=== PATIENT | female | born 1955 | race Caucasian/White ===

== ENCOUNTER 2023-12-12 05:53 | Day surgery (SDC) | payer MEDICARE, OTHER, SELFPAY ==
--- NOTE | 2023-11-07 12:12 | CM ---
Patient is scheduled for an elective L TKR on 12/12/23- she is a same day patient. Spoke with patient prior to surgery. Introduced role of Orthopedic Navigator. Patient reports that she lives with her in a two story home. There are two steps
to enter and a flight of steps to the second floor. She currently functions independently. She has a cane and rolling walker. She has never had VN services. PCP is Ale Turk.
Discussed orthopedic program and post surgical plans. Reviewed that she will have VN services initially (medicare.gov website and ratings reviewed) and will then start outpatient PT. Patient selects [facility] (face sheet faxed to [facility] to facilitate
confirmation of benefits) for her home care needs and will go to [facility] for outpatient PT.
Patient is in agreement with plan and states that her will be home with her.
Patient has completed online education.
Plan: Orthopedic Navigator will remain available to assist with the care of patient and will reassess discharge needs after surgery.
[2023-11-23 12:39] VITALS: BMI 37.3
[2023-11-23 14:12] LABS: Hematocrit 42.4 % (37.0-47.0); Hemoglobin 14.7 g/dL (12.0-16.0); Mean Corp Hgb Conc. 34.7 g/dL (33.0-37.0); Mean Corpuscular Hgb 31.4 pg (27.0-31.0); Mean Corpuscular Volume 90.6 fL (81.0-99.0); Mean Platelet Volume 9.1 fL (7.4-10.4); Platelet Count 260 10^3/uL (130-400); Red Blood Cell Count 4.68 10^6/uL (4.20-5.40); Red Cell Dist. Width 12.7 % (11.5-14.5); White Blood Cell Count 4.9 10^3/uL (4.8-10.8)
[2023-11-23 14:23] LABS: ALT (SGPT) 31 U/L (0-35); AST (SGOT) 31 U/L (14-36); Albumin 4.7 g/dl (3.5-5.0); Alkaline Phosphatase 91 U/L (38-126); Blood Urea Nitrogen 14 mg/dl (7-17); Calcium 10.6 mg/dl (8.4-10.2); Carbon Dioxide 30 mmol/L (22-30); Chloride 100 mmol/L (98-107); Estimated Creatinine Clearance 58 ml/min; Glucose 100 mg/dl (70-99); Potassium 4.2 mmol/L (3.5-5.1); Sodium 136 mmol/L (135-145); Total Bilirubin 0.9 mg/dl (0.2-1.3); Total Protein 7.5 g/dl (6.3-8.2); eGFR > 60.00
[2023-11-23 14:26] LABS: Glycohemoglobin (HgbA1c) 6.3 % (4.0-5.6)
--- NOTE | 2023-11-23 15:08 | HPS.HSE ---
Family Physician
-
Family Physician: Ale Turk
Chief Complaint
-
Advanced primary osteoarthritis of the left knee. Same-day surgery.
History of Present Illness
The patient is a 68-year-old female presenting today for advanced primary osteoarthritis of the left knee. The patient reports significant left knee pain secondary to this diagnosis. She notes that her current left knee pain is greatly
interfering with her activities of daily living and is overall impacting her quality of life. She has tried and failed multiple conservative treatment measures in the past for her knee pain. These conservative treatment measures include
intra-articular injections, self-directed therapeutic exercises, activity modification, attempted weight loss, medical management with Tylenol and NSAIDs, and the application of ice and/or heat. Recent x-rays of the left knee revealed significant
osteoarthritis with medial joint space narrowing and periarticular spurs about the medial and lateral compartments. She was determined to be in need of a left total knee arthroplasty. She denies any current complaints today, such as chest pain,
shortness of breath, palpitations, nausea, vomiting, diarrhea, lightheadedness, dizziness, cough, sore throat, or fever.
Medical History
Past Medical History
Past Medical History: Reports Other
Additional Past Medical History:
1. Osteoarthritis.
2. Hypertension.
3. Hyperlipidemia.
4. Ambulatory dysfunction.
5. Vulvar lichen sclerosus.
6. Right retinal detachment, status post repair.
7. Mild hypercalcemia.
8. Prediabetes, A1c 6.3.
9. Obesity, BMI 37.3.
Past Surgical History: Reports Other
Additional Past Surgical History:
1. Right knee arthroscopy.
2. Right hand cyst excision.
3. Bilateral tubal ligation.
4. x2.
5. Right retinal detachment repair.
6. Bilateral cataract extraction.
7. Colonoscopy x2.
Social History
Tobacco: Non-smoker
Alcohol: None
Personal:
Living: Other (She lives with her in a 2 story home. )
Family History
Family History: Not pertinent
Allergies / Home Medications
Allergy/Medication List:
Home medications:
1. Acetaminophen 500 mg p.o. daily as needed.
2. Clobetasol 1 application topical twice a week.
3. Hydrochlorothiazide 25 mg p.o. daily.
4. Ibuprofen 400 mg p.o. every 8 hours as needed.
5. Lisinopril 10 mg p.o. daily as needed.
6. Loratadine 10 mg p.o. daily as needed.
7. Multivitamin 2 gummies p.o. daily.
8. Rosuvastatin 5 mg p.o. daily.
Allergies: Seasonal. No known drug allergies.
Review of Systems
-
A 12 point ROS was completed and negative except as noted: Yes
Physical Exam
Vital Signs
Blood pressure 153/87. Heart rate 86. Respirations 18. Pulse ox 97% on room air.
Height 5 feet. Weight 86.7 kg. BMI 37.3.
Physical Exam
General: Well Developed, Well Nourished and No Apparent Distress
HEENT: NormoCephalic, Moist mucous membranes, Atraumatic and PERRLA
Respiratory: Clear
Cardiac: Regular Rhythm
GI: Soft, Non Tender, Non Distended and Other (Obese. )
Musculoskeletal: Other (Left knee: range of motion 10-120. Positive medial and lateral joint line tenderness. Positive patellar grind. Small effusion. Mild instability to valgus stress. Palpable Rodriguez's cyst. )
Skin: Warm and Dry
Neuro: AO x 3 and Nonfocal/grossly intact
Laboratory Results
-
11/23/23 12:20
11/23/23 12:20
Laboratory Results
Total Bilirubin 0.9 mg/dl (0.2-1.3) 11/23/23 12:20
AST 31 U/L (14-36) 11/23/23 12:20
ALT 31 U/L (0-35) 11/23/23 12:20
Alkaline Phosphatase 91 U/L (38-126) 11/23/23 12:20
Hemoglobin A1c 6.3.
MRSA nasal screen negative.
EKG 11/23/2023: Normal sinus rhythm. Nonspecific ST and T wave abnormality. Compared to the prior EKG of 12/06/2011, no significant change was found.
Impression/Plan
-
CLEARANCES:
1. Primary medical, Dr. Ale Turk, cleared.
Primary medical phone number: [phone].
2. Dental waived.
IMPRESSION/PLAN:
1. Advanced primary osteoarthritis of the left knee in need of a left total knee arthroplasty with Dr. Ricardo Remy on 12/12/2023. The benefits and risks of the procedure have been explained to the patient. The patient understands these risks and
wishes to proceed.
2. DVT prophylaxis - Aspirin with bilateral venous compression devices.
3. Pain management: The patient has stable comorbidities as referenced by her primary care physician and is medically optimized to proceed as a Same-Day Surgery candidate on 12/12/2023. In preparation for her procedure, she has already been
prescribed Oxycodone 5 mg, 1-2 tablets p.o. every 6 hours as needed for moderate-severe post-operative pain. She will also utilize Acetaminophen 1000 mg p.o. every 6 hours, Meloxicam 15 mg p.o. daily, and Decadron 4 mg p.o. twice a day for 3 days
post-surgery.
Patient's phone number: [phone].
Patient's contact (Marco Kline - Spouse): [phone].
[2023-11-23 15:42] VITALS: BMI 37.3
[2023-12-12] VITALS (13 sets, daily range): BP systolic 125–171; BP diastolic 57–79; BMI 37.3
[2023-12-12] MEDS: NORMOSOL-R 1000 IV (06:27)
[2023-12-12] MEDS: ANCEF 5 IV (10:53)
--- NOTE | 2023-12-12 11:42 | CM ---
Patient had planned L TKR today. Met with patient and her at bedside to review discharge plans. Patient will be returning home today with services through [facility]. On , 12/15, patient will start outpatient PT at [facility]. Reviewed MD
follow up in two weeks and patient is aware of need to schedule appointment.
Patient has her rolling walker here with her.
PT and [facility] were kept updated as to progress and discharge plans.
== END 2023-12-12 11:43 | disposition home health service (06) ==
LOC: SDS 05:53
PROVIDERS: ATTENDING PHYSICIAN Specialist; FAMILY PHYSICIAN Family Medicine; OTHER PHYSICIAN Physician Assistant
DX: M17.12 Unilateral primary osteoarthritis, left knee (principal)
CPT/HCPCS: 27447; 36415; 73560; 80053; 83036; 85027; 87070; 93005; 97162; C1713; C1776

== ENCOUNTER 2024-11-26 06:26 | Day surgery (SDC) | payer MEDICARE, OTHER, SELFPAY ==
--- NOTE | 2024-11-13 12:48 | VNURNOTE ---
Patient is scheduled for an elective R TKA on 11/26/24- she is a same day patient with Dr Remy. Spoke with patient prior to surgery. Introduced role of [facility] Liaison. Patient reports that she lives with her spouse in a MULTI story home.
There are 2 steps to enter and a flight of steps to the second floor.
There is a powder room on the director of intelligence. patient has a cane and rolling walker.
She had VN services after prior knee surgery and was same day surgery.
PCP is Dr Ale Turk
Discussed [facility] joint protocol and post surgical plans.
Reviewed that she will have VN services initially and will then start outpatient PT.
Patient selects [facility] for home care needs and will go to [facility] for outpatient PT. Scheduled for 11/29
Patient is in agreement with plan and states that her spouse will be home with her. Advised to bring RW day of surgery. Referral placed in [facility].
Plan: [facility] per [facility] joint protocol 11/26 then outpt PT on 11/29
[2024-11-14 10:56] LABS: Hematocrit 43.1 % (37.0-47.0); Hemoglobin 15.4 g/dL (12.0-16.0); Mean Corp Hgb Conc. 35.7 g/dL (33.0-37.0); Mean Corpuscular Hgb 30.9 pg (27.0-31.0); Mean Corpuscular Volume 86.5 fL (81.0-99.0); Mean Platelet Volume 8.8 fL (7.4-10.4); Platelet Count 213 10^3/uL (130-400); Red Blood Cell Count 4.98 10^6/uL (4.20-5.40); Red Cell Dist. Width 12.5 % (11.5-14.5); White Blood Cell Count 3.8 10^3/uL (4.8-10.8)
[2024-11-14 11:58] LABS: ALT (SGPT) 23 U/L (0-35); AST (SGOT) 25 U/L (14-36); Albumin 5.1 g/dl (3.5-5.0); Alkaline Phosphatase 77 U/L (38-126); Blood Urea Nitrogen 17 mg/dl (7-17); Calcium 10.6 mg/dl (8.4-10.2); Carbon Dioxide 24 mmol/L (22-30); Chloride 101 mmol/L (98-107); Glucose 121 mg/dl (70-99); Sodium 137 mmol/L (135-145); Total Bilirubin 0.7 mg/dl (0.2-1.3); Total Protein 7.5 g/dl (6.3-8.2); eGFR > 60.00
[2024-11-14 12:05] LABS: Glycohemoglobin (HgbA1c) 5.8 % (4.0-5.6)
[2024-11-14 14:26] VITALS: BMI 35.8
[2024-11-21 14:53] VITALS: BMI 35.8
[2024-11-26] VITALS (14 sets, daily range): BP systolic 111–165; BP diastolic 62–97; PULSE 83; O2SAT 96
[2024-11-26] MEDS: NORMOSOL-R/PLASMALYTE-A 1000 IV (08:17)
[2024-11-26] MEDS: ANCEF 5 IV (12:34)
== END 2024-11-26 13:07 | disposition home health service (06) ==
LOC: SDS 06:26
PROVIDERS: ATTENDING PHYSICIAN Specialist; FAMILY PHYSICIAN Family Medicine; OTHER PHYSICIAN Physician Assistant Medical
PROC: 0SRC0J9 Replacement of Right Knee Joint with Synthetic Substitute, Cemented, Open Approach (ICD-10-PCS; 2024-11-26)
DX: M17.11 Unilateral primary osteoarthritis, right knee (principal); E66.9 Obesity, unspecified; Z68.35 Body mass index [BMI] 35.0-35.9, adult; I10 Essential (primary) hypertension
CPT/HCPCS: 27447; 36415; 73560; 80053; 83036; 85027; 87070; 93005; 97162; C1713; C1776